=== PATIENT | male | born 1955 ===

== ENCOUNTER 2020-05-27 16:37 | Inpatient (IN) ==
[2020-05-27] MEDS ORDERED: NS 0.9% 1000 ml BAG 1,000 ML IV ONE (17:05)
[2020-05-27 17:55] LABS: ABS Lymphocytes 0.5 10^3/ul (1.0-4.8); ABS Monocytes 0.3 10^3/ul (0-0.8); ABS Neutrophils 6.4 10^3/ul (1.5-7.7); Eosinophil % 0.1 %; Hematocrit 43 % (42-52); Hemoglobin 14.7 g/dL (14.0-18.0); Lymphocyte % 6.7 %; Mean Corpuscular HGB Conc 34 g/dL (31-36); Mean Corpuscular Hemoglobin 31 pg (27-31); Mean Corpuscular Volume 89 fL (80-94); Mean Platelet Volume 8.6 fL (7.4-10.4); Nucleated Red Blood Cells % 0.1; Platelet Count 218 10^3/uL (150-450); Red Blood Count 4.83 10^6 /uL (4.18-5.48); Red Cell Distribution Width 14 % (10-15); White Blood Count 7.2 10^3/uL (3.5-10.8)
[2020-05-27 17:59] LABS: ALT 60 U/L (7-52); AST 55 U/L (13-39); Albumin 3.7 g/dL (3.2-5.2); Albumin/Globulin Ratio 1.1 (1-3); Alkaline Phosphatase 57 U/L (34-104); Anion Gap 11 mmol/L (2-11); BUN/Creatinine Ratio 21.5 (8-20); Blood Urea Nitrogen 34 mg/dL (6-24); CO2 Carbon Dioxide 23 mmol/L (22-32); Calcium 8.4 mg/dL (8.6-10.3); Chloride 98 mmol/L (101-111); Creatine Kinase 69 U/L (10-223); EGFR African American 53.7 (>60); EGFR Non-African American 44.4 (>60); Globulin 3.5 g/dL (2-4); Glucose 286 mg/dL (70-100); Potassium 3.8 mmol/L (3.5-5.0); Sodium 132 mmol/L (135-145); Total Protein 7.2 g/dL (6.4-8.9)
[2020-05-27 18:00] LABS: Activated Partial Thrombo Time 27.4 seconds (26.0-38.0); INR 1.12 (0.82-1.09)
[2020-05-27 18:10] LABS: Troponin I 0.04 ng/mL (<0.03)
[2020-05-27] MEDS ORDERED: Remdesivir 200 mg LOADING DOSE X1 (LIQ Vial) IV ONE (20:45)
[2020-05-27] MEDS ORDERED: Dexamethasone IV 4 MG/ML VIAL 1 ml VIAL IV SLOW PU SCH (21:00)
[2020-05-27 21:02] LABS: C Reactive Protein 100.08 mg/L (<8.01)
[2020-05-27] MEDS: NS 0.9% 1000 ml BAG 1,000 ML IV SCH (22:56)
[2020-05-27] MEDS: Enoxaparin 40 MG/0.4 ML SYR SUBCUT SCH (23:05)
[2020-05-27 23:25] LABS: Troponin I 0.03 ng/mL (<0.03)
[2020-05-28 06:26] LABS: ABS Lymphocytes 0.6 10^3/ul (1.0-4.8); ABS Monocytes 0.2 10^3/ul (0-0.8); ABS Neutrophils 5.6 10^3/ul (1.5-7.7); Eosinophil % 0.1 %; Hematocrit 39 % (42-52); Hemoglobin 13.4 g/dL (14.0-18.0); Lymphocyte % 9.7 %; Mean Corpuscular HGB Conc 34 g/dL (31-36); Mean Corpuscular Hemoglobin 31 pg (27-31); Mean Corpuscular Volume 89 fL (80-94); Mean Platelet Volume 8.6 fL (7.4-10.4); Nucleated Red Blood Cells % 0.1; Platelet Count 224 10^3/uL (150-450); Red Blood Count 4.39 10^6 /uL (4.18-5.48); Red Cell Distribution Width 14 % (10-15); White Blood Count 6.4 10^3/uL (3.5-10.8)
[2020-05-28 06:40] LABS: BUN/Creatinine Ratio 17.4 (8-20); EGFR African American 57.5 (>60); EGFR Non-African American 47.5 (>60); Potassium 4.2 mmol/L (3.5-5.0)
[2020-05-28] MEDS ORDERED: Febuxostat 40 mg TAB (NF) PO SCH (09:00)
[2020-05-28] MEDS: Dexamethasone IV 4 MG/ML VIAL 1 ml VIAL IV SLOW PU SCH ×2 (09:18→20:15)
[2020-05-28] MEDS: Enoxaparin 40 MG/0.4 ML SYR SUBCUT SCH ×2 (09:19→20:19)
[2020-05-28] MEDS ORDERED: Perflutren Lipid Microsphere 3 ML VIAL ONE (09:34)
[2020-05-28] MEDS: NS 0.9% 1000 ml BAG 1,000 ML IV SCH ×2 (12:22→23:05)
[2020-05-28 15:04] LABS: Indirect Bilirubin 0.3 mg/dL (0.3-1.0)
[2020-05-28] MEDS: Remdesivir 5 MG/ML LIQ IV Vial 100 MG in NS 0.9% 250 ml 230 ML IV SCH (21:51)
[2020-05-28 22:41] LABS: Urine Appearance Clear; Urine Bilirubin Negative (Negative); Urine Blood 2+ (Negative); Urine Color Yellow; Urine Glucose 3+(>=500 mg/dL) (Negative); Urine Ketones Negative (Negative); Urine Nitrite Negative (Negative); Urine Protein 1+(30 mg/dL) (Negative); Urine Specific Gravity 1.021 (1.010-1.030); Urine Urobilinogen Negative (Negative)
[2020-05-28 22:51] LABS: Urine Bacteria Absent (Absent); Urine Red Blood Cell Trace(0-2/hpf) (Absent); Urine White Blood Cell Trace(0-5/hpf) (Absent)
[2020-05-29 05:21] LABS: Hematocrit 38 % (42-52); Hemoglobin 12.9 g/dL (14.0-18.0); Mean Corpuscular HGB Conc 34 g/dL (31-36); Mean Corpuscular Hemoglobin 31 pg (27-31); Mean Corpuscular Volume 90 fL (80-94); Mean Platelet Volume 8.9 fL (7.4-10.4); Platelet Count 239 10^3/uL (150-450); Red Blood Count 4.19 10^6 /uL (4.18-5.48); Red Cell Distribution Width 14 % (10-15); White Blood Count 9.1 10^3/uL (3.5-10.8)
[2020-05-29 05:39] LABS: BUN/Creatinine Ratio 25.2 (8-20); Calcium 7.8 mg/dL (8.6-10.3); EGFR African American 62.2 (>60); EGFR Non-African American 51.4 (>60); Total Bilirubin 0.2 mg/dL (0.2-1.0)
[2020-05-29 06:49] LABS: Potassium 4.2 mmol/L (3.5-5.0)
[2020-05-29] MEDS: Enoxaparin 40 MG/0.4 ML SYR SUBCUT SCH ×2 (08:05→21:18)
[2020-05-29] MEDS: Dexamethasone IV 4 MG/ML VIAL 1 ml VIAL IV SLOW PU SCH (08:05)
[2020-05-29] MEDS: Fluticasone NASAL SPRAY 50MCG 16 gm SPRAY BTL BOTH NARES SCH (13:51)
[2020-05-29] MEDS: Saline NASAL SPRAY 0.65% BTL BOTH NARES PRN (13:52)
[2020-05-29] MEDS: Remdesivir 5 MG/ML LIQ IV Vial 100 MG in NS 0.9% 250 ml 230 ML IV SCH (21:21)
[2020-05-30 04:28] LABS: Hematocrit 41 % (42-52); Hemoglobin 13.9 g/dL (14.0-18.0); Mean Corpuscular HGB Conc 34 g/dL (31-36); Mean Corpuscular Hemoglobin 31 pg (27-31); Mean Corpuscular Volume 91 fL (80-94); Mean Platelet Volume 8.8 fL (7.4-10.4); Platelet Count 285 10^3/uL (150-450); Red Cell Distribution Width 14 % (10-15); White Blood Count 14.6 10^3/uL (3.5-10.8)
[2020-05-30 04:55] LABS: Albumin 3.2 g/dL (3.2-5.2); Albumin/Globulin Ratio 1.1 (1-3); Calcium 8.1 mg/dL (8.6-10.3); EGFR African American 71.7 (>60); EGFR Non-African American 59.2 (>60); Globulin 2.9 g/dL (2-4); Total Bilirubin 0.3 mg/dL (0.2-1.0); Total Protein 6.1 g/dL (6.4-8.9)
[2020-05-30] MEDS: methylPREDNISolone SOD 40 mg/ml 1 ml VIAL IV SCH (09:32)
[2020-05-30] MEDS: Enoxaparin 40 MG/0.4 ML SYR SUBCUT SCH ×2 (09:32→21:28)
[2020-05-30] MEDS: Fluticasone NASAL SPRAY 50MCG 16 gm SPRAY BTL BOTH NARES SCH (09:32)
[2020-05-30] MEDS ORDERED: Furosemide 20 mg/2 ml IV VIAL IV ONE (16:42)
[2020-05-30] MEDS: cefTRIAXone 1 gm/50 mL NS BAG 1 GM/50 ML BAG IVPB SCH (17:13)
[2020-05-30 20:11] LABS: ABS Lymphocytes 0.5 10^3/ul (1.0-4.8); ABS Monocytes 0.3 10^3/ul (0-0.8); ABS Neutrophils 9.1 10^3/ul (1.5-7.7); Hematocrit 41 % (42-52); Hemoglobin 13.9 g/dL (14.0-18.0); Lymphocyte % 4.7 %; Mean Corpuscular HGB Conc 34 g/dL (31-36); Mean Corpuscular Hemoglobin 31 pg (27-31); Mean Corpuscular Volume 90 fL (80-94); Mean Platelet Volume 8.8 fL (7.4-10.4); Platelet Count 300 10^3/uL (150-450); Red Blood Count 4.55 10^6 /uL (4.18-5.48); Red Cell Distribution Width 15 % (10-15); White Blood Count 9.9 10^3/uL (3.5-10.8)
[2020-05-30 20:28] LABS: Troponin I 0.01 ng/mL (<0.03)
[2020-05-30 20:30] LABS: Albumin 3.1 g/dL (3.2-5.2); BUN/Creatinine Ratio 21.9 (8-20); C Reactive Protein 53.08 mg/L (<8.01); Calcium 7.7 mg/dL (8.6-10.3); EGFR African American 63.3 (>60); EGFR Non-African American 52.3 (>60); Globulin 3.1 g/dL (2-4); Potassium 4.2 mmol/L (3.5-5.0); Total Bilirubin 0.3 mg/dL (0.2-1.0); Total Protein 6.2 g/dL (6.4-8.9)
[2020-05-30 21:10] LABS: Ferritin 764.3 ng/mL (24-336)
[2020-05-30] MEDS: Insulin GLARGINE 100 un/ml 10 ml VIAL SUBCUT SCH (21:41)
[2020-05-30] MEDS: Remdesivir 5 MG/ML LIQ IV Vial 100 MG in NS 0.9% 250 ml 230 ML IV SCH (21:42)
[2020-05-31] MEDS: cefTRIAXone 1 gm/50 mL NS BAG 1 GM/50 ML BAG IVPB SCH ×2 (04:42→16:18)
[2020-05-31] MEDS ORDERED: Furosemide 40 mg/4 ml IV VIAL IV ONE (07:50)
[2020-05-31] MEDS: Enoxaparin 40 MG/0.4 ML SYR SUBCUT SCH ×2 (08:27→23:18)
[2020-05-31] MEDS: Fluticasone NASAL SPRAY 50MCG 16 gm SPRAY BTL BOTH NARES SCH (08:38)
[2020-05-31] MEDS: methylPREDNISolone SOD 40 mg/ml 1 ml VIAL IV SCH (08:38)
[2020-05-31 09:24] LABS: Hematocrit 40 % (42-52); Hemoglobin 13.6 g/dL (14.0-18.0); Mean Corpuscular HGB Conc 34 g/dL (31-36); Mean Corpuscular Hemoglobin 31 pg (27-31); Mean Corpuscular Volume 91 fL (80-94); Mean Platelet Volume 9.3 fL (7.4-10.4); Platelet Count 303 10^3/uL (150-450); Red Blood Count 4.43 10^6 /uL (4.18-5.48); Red Cell Distribution Width 14 % (10-15); White Blood Count 9.1 10^3/uL (3.5-10.8)
[2020-05-31 09:29] LABS: CO2 Carbon Dioxide 21 mmol/L (22-32); Calcium 7.6 mg/dL (8.6-10.3); Chloride 110 mmol/L (101-111); Sodium 142 mmol/L (135-145)
[2020-05-31 09:35] LABS: ALT 38 U/L (7-52); Albumin/Globulin Ratio 1.1 (1-3); Alkaline Phosphatase 61 U/L (34-104); BUN/Creatinine Ratio 24.6 (8-20); Blood Urea Nitrogen 28 mg/dL (6-24); EGFR African American 78.3 (>60); EGFR Non-African American 64.7 (>60); Globulin 2.8 g/dL (2-4); Glucose 139 mg/dL (70-100); Total Protein 5.8 g/dL (6.4-8.9)
[2020-05-31 09:45] LABS: Anion Gap 11 mmol/L (2-11)
[2020-05-31 11:45] LABS: Troponin I 0.03 ng/mL (<0.03)
[2020-05-31 13:08] LABS: Vitamin D Total 25(OH) 32.5 ng/mL (20-50)
[2020-05-31] MEDS: Remdesivir 5 MG/ML LIQ IV Vial 100 MG in NS 0.9% 250 ml 230 ML IV SCH (21:00)
[2020-05-31] MEDS: Insulin GLARGINE 100 un/ml 10 ml VIAL SUBCUT SCH (23:20)
[2020-06-01 04:35] LABS: Hematocrit 42 % (42-52); Hemoglobin 14.7 g/dL (14.0-18.0); Mean Corpuscular HGB Conc 35 g/dL (31-36); Mean Corpuscular Hemoglobin 31 pg (27-31); Mean Corpuscular Volume 90 fL (80-94); Mean Platelet Volume 8.8 fL (7.4-10.4); Platelet Count 346 10^3/uL (150-450); Red Blood Count 4.72 10^6 /uL (4.18-5.48); Red Cell Distribution Width 14 % (10-15); White Blood Count 8.8 10^3/uL (3.5-10.8)
[2020-06-01 04:52] LABS: Albumin 3.2 g/dL (3.2-5.2); Albumin/Globulin Ratio 0.9 (1-3); BUN/Creatinine Ratio 29.4 (8-20); C Reactive Protein 46.54 mg/L (<8.01); Calcium 8.5 mg/dL (8.6-10.3); EGFR African American 74.5 (>60); EGFR Non-African American 61.5 (>60); Globulin 3.4 g/dL (2-4); Potassium 3.9 mmol/L (3.5-5.0); Total Bilirubin 0.4 mg/dL (0.2-1.0); Total Protein 6.6 g/dL (6.4-8.9)
[2020-06-01 04:54] LABS: Troponin I 0.01 ng/mL (<0.03)
[2020-06-01] MEDS: cefTRIAXone 1 gm/50 mL NS BAG 1 GM/50 ML BAG IVPB SCH ×2 (05:00→16:41)
[2020-06-01] MEDS: methylPREDNISolone SOD 40 mg/ml 1 ml VIAL IV SCH (08:02)
[2020-06-01] MEDS: Enoxaparin 40 MG/0.4 ML SYR SUBCUT SCH ×2 (08:02→21:52)
[2020-06-01] MEDS ORDERED: Potassium Chlor 20 meq TAB.ER PO ONE ×2 (08:06→18:00)
[2020-06-01] MEDS ORDERED: Furosemide 40 mg/4 ml IV VIAL IV ONE ×2 (08:08→16:45)
[2020-06-01] MEDS: Fluticasone NASAL SPRAY 50MCG 16 gm SPRAY BTL BOTH NARES SCH (08:12)
[2020-06-01] MEDS ORDERED: Furosemide 40 mg/4 ml IV VIAL ONE (16:43)
[2020-06-01] MEDS ORDERED: Insulin GLARGINE 100 un/ml 10 ml VIAL SUBCUT SCH (21:00)
[2020-06-01] MEDS: Remdesivir 5 MG/ML LIQ IV Vial 100 MG in NS 0.9% 250 ml 230 ML IV SCH (21:54)
[2020-06-02] MEDS: cefTRIAXone 1 gm/50 mL NS BAG 1 GM/50 ML BAG IVPB SCH ×2 (05:26→16:42)
[2020-06-02 05:52] LABS: Hematocrit 42 % (42-52); Hemoglobin 14.5 g/dL (14.0-18.0); Mean Corpuscular HGB Conc 34 g/dL (31-36); Mean Corpuscular Hemoglobin 31 pg (27-31); Mean Corpuscular Volume 90 fL (80-94); Mean Platelet Volume 8.4 fL (7.4-10.4); Platelet Count 367 10^3/uL (150-450); Red Blood Count 4.68 10^6 /uL (4.18-5.48); Red Cell Distribution Width 14 % (10-15); White Blood Count 10.2 10^3/uL (3.5-10.8)
[2020-06-02 06:08] LABS: Albumin 3.1 g/dL (3.2-5.2); Albumin/Globulin Ratio 0.9 (1-3); BUN/Creatinine Ratio 29.7 (8-20); Calcium 8.8 mg/dL (8.6-10.3); EGFR African American 68.5 (>60); EGFR Non-African American 56.6 (>60); Globulin 3.3 g/dL (2-4); Potassium 4.1 mmol/L (3.5-5.0); Total Bilirubin 0.4 mg/dL (0.2-1.0); Total Protein 6.4 g/dL (6.4-8.9)
[2020-06-02 06:31] LABS: INR 1.12 (0.82-1.09)
[2020-06-02] MEDS: Fluticasone NASAL SPRAY 50MCG 16 gm SPRAY BTL BOTH NARES SCH (07:57)
[2020-06-02] MEDS: methylPREDNISolone SOD 40 mg/ml 1 ml VIAL IV SCH (07:57)
[2020-06-02] MEDS: Enoxaparin 40 MG/0.4 ML SYR SUBCUT SCH ×2 (07:57→20:28)
[2020-06-02] MEDS: Saline NASAL SPRAY 0.65% BTL BOTH NARES PRN (07:59)
[2020-06-02 09:15] LABS: ABS Eosinophils 0.2 10^3/ul (0-0.6); ABS Lymphocytes 1.5 10^3/ul (1.0-4.8); ABS Monocytes 0.4 10^3/ul (0-0.8); ABS Neutrophils 8.2 10^3/ul (1.5-7.7); Eosinophil % 1.6 %; Lymphocyte % 14.6 %
[2020-06-02] MEDS: Insulin GLARGINE 100 un/ml 10 ml VIAL SUBCUT SCH (11:00)
[2020-06-02] MEDS: Remdesivir 5 MG/ML LIQ IV Vial 100 MG in NS 0.9% 250 ml 230 ML IV SCH (21:51)
[2020-06-03] MEDS: cefTRIAXone 1 gm/50 mL NS BAG 1 GM/50 ML BAG IVPB SCH ×2 (05:39→16:33)
[2020-06-03 06:20] LABS: ABS Basophils 0.1 10^3/ul (0-0.2); ABS Eosinophils 0.2 10^3/ul (0-0.6); ABS Lymphocytes 1.5 10^3/ul (1.0-4.8); ABS Monocytes 0.5 10^3/ul (0-0.8); Eosinophil % 1.6 %; Hematocrit 43 % (42-52); Hemoglobin 14.5 g/dL (14.0-18.0); Lymphocyte % 16.2 %; Mean Corpuscular HGB Conc 34 g/dL (31-36); Mean Corpuscular Hemoglobin 30 pg (27-31); Mean Corpuscular Volume 90 fL (80-94); Mean Platelet Volume 8.2 fL (7.4-10.4); Platelet Count 395 10^3/uL (150-450); Red Cell Distribution Width 14 % (10-15); White Blood Count 9.2 10^3/uL (3.5-10.8)
[2020-06-03 06:36] LABS: Albumin 3.1 g/dL (3.2-5.2); Albumin/Globulin Ratio 0.9 (1-3); BUN/Creatinine Ratio 28.3 (8-20); Calcium 8.6 mg/dL (8.6-10.3); EGFR African American 69.1 (>60); EGFR Non-African American 57.1 (>60); Globulin 3.3 g/dL (2-4); Potassium 4.2 mmol/L (3.5-5.0); Total Bilirubin 0.5 mg/dL (0.2-1.0); Total Protein 6.4 g/dL (6.4-8.9)
[2020-06-03] MEDS ORDERED: Furosemide 40 mg/4 ml IV VIAL IV ONE (07:47)
[2020-06-03] MEDS: Enoxaparin 40 MG/0.4 ML SYR SUBCUT SCH ×2 (08:11→21:42)
[2020-06-03] MEDS: Fluticasone NASAL SPRAY 50MCG 16 gm SPRAY BTL BOTH NARES SCH (08:12)
[2020-06-03] MEDS: Insulin GLARGINE 100 un/ml 10 ml VIAL SUBCUT SCH (08:15)
[2020-06-03] MEDS: Saline NASAL SPRAY 0.65% BTL BOTH NARES PRN (08:28)
[2020-06-04] MEDS: cefTRIAXone 1 gm/50 mL NS BAG 1 GM/50 ML BAG IVPB SCH ×2 (05:38→17:37)
[2020-06-04 06:42] LABS: ABS Eosinophils 0.3 10^3/ul (0-0.6); ABS Lymphocytes 1.5 10^3/ul (1.0-4.8); ABS Monocytes 0.4 10^3/ul (0-0.8); ABS Neutrophils 7.8 10^3/ul (1.5-7.7); Eosinophil % 2.8 %; Hematocrit 42 % (42-52); Hemoglobin 14.5 g/dL (14.0-18.0); Mean Corpuscular HGB Conc 34 g/dL (31-36); Mean Corpuscular Hemoglobin 31 pg (27-31); Mean Corpuscular Volume 90 fL (80-94); Mean Platelet Volume 8.4 fL (7.4-10.4); Platelet Count 375 10^3/uL (150-450); Red Blood Count 4.68 10^6 /uL (4.18-5.48); Red Cell Distribution Width 14 % (10-15)
[2020-06-04 06:53] LABS: BUN/Creatinine Ratio 32.2 (8-20); Calcium 8.7 mg/dL (8.6-10.3); EGFR African American 77.5 (>60); Potassium 4.3 mmol/L (3.5-5.0); Total Bilirubin 0.4 mg/dL (0.2-1.0)
[2020-06-04] MEDS: Insulin GLARGINE 100 un/ml 10 ml VIAL SUBCUT SCH (09:19)
[2020-06-04] MEDS: Enoxaparin 40 MG/0.4 ML SYR SUBCUT SCH ×2 (09:20→21:33)
[2020-06-04] MEDS ORDERED: Insulin GLARGINE 100 un/ml 10 ml VIAL SUBCUT ONE (17:23)
[2020-06-05] MEDS: cefTRIAXone 1 gm/50 mL NS BAG 1 GM/50 ML BAG IVPB SCH ×2 (05:02→18:51)
[2020-06-05] MEDS: Enoxaparin 40 MG/0.4 ML SYR SUBCUT SCH ×2 (08:00→20:48)
[2020-06-05] MEDS ORDERED: Hemorrhoidal OINT 1 TUBE PR PRN (09:11)
[2020-06-05] MEDS: Insulin GLARGINE 100 un/ml 10 ml VIAL SUBCUT SCH (11:24)
[2020-06-06] MEDS: Insulin GLARGINE 100 un/ml 10 ml VIAL SUBCUT SCH (08:10)
[2020-06-06] MEDS: Enoxaparin 40 MG/0.4 ML SYR SUBCUT SCH (08:11)
[2020-06-06 11:22] VITALS: BP 117/73
== END 2020-06-06 12:35 | disposition home or self-care (01) | DRG 720 ==
LOC: ED 16:37 → ICU 20:35 → MED 06-05 13:11
PROVIDERS: ADMIT Hospitalist; ATTEND Hospitalist